=== PATIENT | male | born 1950 | race Caucasian/White ===

== ENCOUNTER → 2022-11-17 | Outpatient (CLI) | payer OTHER ==
[2022-11-17 10:04] LABS: PLATELET COUNT, AUTOMATED 176 10^3/uL (150-450)
[2022-11-17 10:13] LABS: INR 0.88; PROTHROMBIN TIME 12.1 SECONDS (12.5-14.5)
[2022-11-17 10:14] LABS: PARTIAL THROMBOPLASTIN TIME 31.4 SECONDS (24.8-34.2)
[2022-11-17 10:49] LABS: COLLAGEN EPINEPHRINE 181 SECONDS (74-162)
[2022-11-17 11:42] LABS: COLLAGEN ADP 112 SECONDS (56-103)
== END ==
LOC: M LAB 09:37
PROVIDERS: ATTEND Physician Assistant
DX: M51.16 Intervertebral disc disorders with radiculopathy, lumbar region (principal)